=== PATIENT | female | born 1950 | race African-American/Black ===

== ENCOUNTER 2018-02-13 12:28 | Emergency (ER) | payer MEDICARE, MEDICAID ==
[~2018-02-13] VITALS: Ht 170.2 cm; Wt 107.7 kg
[2018-02-13 12:38] VITALS: BP 143/74; TEMP 99.4
[2018-02-13] MEDS ORDERED: VOLTAREN 50MG T50 MG PO (14:11)
[2018-02-13] MEDS ORDERED: MAXZIDE-25MG TA1 TAB PO (14:12)
[2018-02-13] MEDS ORDERED: ADALAT CC60 MG PO (14:12)
[2018-02-13 14:33] LABS: BASO # 0.1 (0.0-0.2); BASO % 0.6 % (0.0-2.0); EOS % 0.2 % (0-4.0); GRAN # 5.5 (1.4-6.5); GRAN % 64.9 % (42.2-75.2); HEMATOCRIT 34.8 % (37.0-47.0); HEMOGLOBIN 11.5 g/dl (12.5-16.0); LYMPH # 1.9 (1.2-3.4); LYMPH % 22.5 % (20.0-51.0); MEAN CELL VOLUME 86 fl (80.0-100.0); MEAN CORPUSCULAR HEMOGLOBIN 28 pg (27.0-31.0); MEAN CORPUSCULAR HGB CONC 33 g/dl (33.0-37.0); MEAN PLATELET VOLUME 9.4 fl (7.4-10.4); MONO % 11.6 % (1.7-9.3); PLATELET COUNT 269 K/mm3 (130-400); RED BLOOD COUNT 4.06 M/mm3 (4.10-5.30); REDCELL DISTRIBUTION WIDTH-CV 12.5 % (11.5-14.5)
[2018-02-13 14:46] LABS: ALBUMIN 4.2 gm/dL (3.5-5.0); BILIRUBIN,TOTAL 0.5 mg/dL (0.0-1.0); CALCIUM 9.5 mg/dL (8.4-10.2); CREATININE, serum 0.92 mg/dL (0.52-1.25); POTASSIUM 4.3 mmol/L (3.4-5.0); TOTAL PROTEIN 8.2 gm/dL (6.4-8.2)
[2018-02-13] MEDS ORDERED: AMOXICILLIN 8751 TAB PO (14:48)
[2018-02-13] MEDS ORDERED: NORCO 325 MG-51 TAB PO (14:48)
[2018-02-13 15:01] VITALS: PULSE 82
== END 2018-02-13 15:00 | disposition home or self-care (01) ==
LOC: COL.ER 12:28
PROVIDERS: Family Medicine
DX: L03.90 Cellulitis, unspecified (principal); I10 Essential (primary) hypertension